=== PATIENT | female | born 1995 | race Two or more races ===

== ENCOUNTER 2023-05-24 06:45 | Inpatient (IN) | payer OTHER ==
[2023-05-24 09:08] LABS: BASO % 0.5 % (0-2.0); EOS % 0.9 % (0-4.5); HEMATOCRIT 24.6 % (32.4-45.2); HEMOGLOBIN 7.2 GM/dL (10.7-15.3); MCHC 29.3 g/dl (32.0-36.0); MEAN CELL VOLUME 59.3 fl (80-96); MEAN PLT VOLUME 8.1 fl (7.5-11.1); MONO % 5.4 % (3.8-10.2); NEUT % 75.2 % (42.8-82.8); PLATELET COUNT 291 10^3/uL (134-434); RBC 4.14 M/mm3 (3.60-5.2); RDW 20.2 % (11.6-15.6); WHITE BLOOD COUNT 13.5 K/mm3 (4.0-10.0)
[2023-05-24 09:12] LABS: INR 1.09 (0.83-1.09); PROTHROMBIN TIME (PATIENT) 12.6 SEC (9.7-13.0)
[2023-05-24 09:13] LABS: MCH 17.4 pg (25.7-33.7)
[2023-05-24 09:15] LABS: ACTIVATED PTT 28.1 SECONDS (25.2-36.5)
[2023-05-24 09:35] LABS: POTASSIUM 3.9 mmol/L (3.5-5.1)
[2023-05-24 09:36] LABS: CALCIUM 8.2 mg/dL (8.5-10.1)
[2023-05-24 09:37] LABS: BLOOD UREA NITROGEN 10.3 mg/dL (7-18)
[2023-05-24 09:40] LABS: CREATININE 0.5 mg/dL (0.55-1.3)
[2023-05-24] MEDS ORDERED: OXYTOCIN 30 UNITS in 0.9% NS 30 UNIT/500 ML INFUS.BAG IVPB SCH (09:45)
[2023-05-24 09:52] LABS: ANISOCYTOSIS 3+; MACROCYTOSIS 1+; OVALOCYTE 1+
[2023-05-24] MEDS: ELECTROLYTE-148 SOLN 1,000 ML IV SCH ×2 (10:00→22:45)
[2023-05-24] MEDS ORDERED: OXYTOCIN 30 UNITS in 0.9% NS 30 UNIT/500 ML INFUS.BAG IVPB ONE (10:28)
[2023-05-24 11:08] VITALS: BMI 42.0
[2023-05-24 12:00] LABS: HIV INTERPRETATION NEGATIVE (NEGATIVE)
[2023-05-24] MEDS ORDERED: CITRIC ACID/SODIUM CITRATE 30 ML UNIT-DOSE CUP PO ONE (22:00)
[2023-05-25] MEDS ORDERED: SIMETHICONE 80 MG TAB.CHEW (FP) PO PRN (00:50)
[2023-05-25] MEDS ORDERED: ACETAMINOPHEN 325 MG TABLET (FP) PO PRN (00:50)
[2023-05-25] MEDS ORDERED: SENNOSIDES/DOCUSATE COMBO (SENNA PLUS) TABLET (UD) PO PRN (00:50)
[2023-05-25] MEDS ORDERED: METHYLERGONOVINE MALEATE 0.2 MG/1 ML AMP IM PRN (00:50)
[2023-05-25] MEDS ORDERED: OXYTOCIN 30 UNITS in 0.9% NS 30 UNIT/500 ML INFUS.BAG IVPB ONE (01:13)
[2023-05-25] MEDS ORDERED: PHENYLEPHRINE HCL 10 MG/1 ML SINGLE DOSE VIAL ONE (01:16)
[2023-05-25] MEDS ORDERED: METOCLOPRAMIDE HCL INJECTION 10 MG/2 ML VIAL ONE (01:16)
[2023-05-25] MEDS ORDERED: ONDANSETRON 4 MG/2 ML VIAL ONE (01:16)
[2023-05-25] MEDS ORDERED: ceFAZolin SODIUM 1 GM VIAL ONE (01:16)
[2023-05-25] MEDS ORDERED: DEXAMETHASONE SOD PHOSPHATE 4 MG/1 ML VIAL ONE (01:16)
[2023-05-25] MEDS ORDERED: morphine SULFATE/PF 1 MG/2 ML (2cc Syringe - QUVA) ONE (01:19)
[2023-05-25] MEDS ORDERED: FENTANYL CITRATE/PF 50 MCG/ML VIAL ONE (01:19)
[2023-05-25] MEDS ORDERED: morphine SULFATE/PF 1 MG/2 ML (2cc Syringe - QUVA) IT ONE (01:34)
[2023-05-25] MEDS: OXYTOCIN 20 UNITS in 0.9% NS 20 UNIT/1,000 ML INFUS.BAG IV SCH ×2 (02:30→22:31)
[2023-05-25] MEDS ORDERED: ONDANSETRON 4 MG/2 ML VIAL IVPUSH PRN (02:47)
[2023-05-25] MEDS ORDERED: OXYTOCIN 20 UNITS in 0.9% NS 20 UNIT/1,000 ML INFUS.BAG IV ONE (03:46)
[2023-05-25] MEDS ORDERED: ACETAMINOPHEN INJECTION 100 ML IVPB ONE (04:27)
[2023-05-25] MEDS: ACETAMINOPHEN 1000 MG/100 ML BAG IVPB PRN ×2 (04:30→21:27)
[2023-05-25] MEDS: FERROUS SO4 325 MG TABLET (FP) PO SCH ×2 (08:00→17:25)
[2023-05-25] MEDS: PRENATAL VITAMINS W/ FOLIC ACID TABLET (FP) PO SCH (10:00)
[2023-05-25] MEDS ORDERED: oxyCODONE HCL 5 MG TABLET PO PRN ×2 (12:50)
[2023-05-25] MEDS: IBUPROFEN 800 MG/8 ML IJ IVPB PRN (15:38)
[2023-05-26] MEDS ORDERED: BISACODYL 10 MG SUPP.RECT RC PRN (00:50)
[2023-05-26] MEDS: IBUPROFEN 800 MG/8 ML IJ IVPB PRN (02:56)
[2023-05-26] MEDS: FERROUS SO4 325 MG TABLET (FP) PO SCH ×2 (08:13→18:08)
[2023-05-26] MEDS: IBUPROFEN 600 MG TABLET (FP) PO PRN ×2 (08:28→18:08)
[2023-05-26 08:59] LABS: BASO % 0.4 % (0-2.0); EOS % 0.7 % (0-4.5); HEMATOCRIT 25.7 % (32.4-45.2); HEMOGLOBIN 7.8 GM/dL (10.7-15.3); LYMPH % 18.8 % (8-40); MCHC 30.5 g/dl (32.0-36.0); MEAN CELL VOLUME 64.7 fl (80-96); MEAN PLT VOLUME 8.4 fl (7.5-11.1); MONO % 5.7 % (3.8-10.2); NEUT % 74.4 % (42.8-82.8); PLATELET COUNT 249 10^3/uL (134-434); RBC 3.97 M/mm3 (3.60-5.2); RDW 25.6 % (11.6-15.6); WHITE BLOOD COUNT 12.4 K/mm3 (4.0-10.0)
[2023-05-26 09:02] LABS: MCH 19.7 pg (25.7-33.7)
[2023-05-26] MEDS: PRENATAL VITAMINS W/ FOLIC ACID TABLET (FP) PO SCH (09:59)
[2023-05-26] MEDS: ELECTROLYTE-148 SOLN 1,000 ML IV SCH (20:08)
[2023-05-26] MEDS: OXYTOCIN 20 UNITS in 0.9% NS 20 UNIT/1,000 ML INFUS.BAG IV SCH (20:08)
[2023-05-26 22:15] VITALS: RESP 18
[2023-05-27] MEDS: IBUPROFEN 600 MG TABLET (FP) PO PRN (02:55)
[2023-05-27] MEDS: FERROUS SO4 325 MG TABLET (FP) PO SCH ×2 (08:40→17:19)
[2023-05-27 09:43] VITALS: BP 111/75; PULSE 92; TEMP 98
[2023-05-27] MEDS: PRENATAL VITAMINS W/ FOLIC ACID TABLET (FP) PO SCH (09:45)
[2023-05-27 15:41] LABS: HEMATOCRIT 28.1 % (32.4-45.2); HEMOGLOBIN 8.6 GM/dL (10.7-15.3); MCHC 30.5 g/dl (32.0-36.0); MEAN CELL VOLUME 64.4 fl (80-96); MEAN PLT VOLUME 8.3 fl (7.5-11.1); PLATELET COUNT 315 10^3/uL (134-434); RBC 4.36 M/mm3 (3.60-5.2); RDW 26.3 % (11.6-15.6); WHITE BLOOD COUNT 11.8 K/mm3 (4.0-10.0)
[2023-05-27 15:44] LABS: MCH 19.6 pg (25.7-33.7)
== END 2023-05-27 17:43 | disposition home or self-care (01) | DRG 540 ==
LOC: JLDR 06:45 → J3W 05-25 04:39
PROVIDERS: ADMIT Obstetrics & Gynecology; ATTEND Obstetrics & Gynecology
PROC: 30233N1 Transfusion of Nonautologous Red Blood Cells into Peripheral Vein, Percutaneous Approach (ICD-10-PCS; 2023-05-24)
PROC: 10D00Z1 Extraction of Products of Conception, Low, Open Approach (ICD-10-PCS; principal; 2023-05-25)
DX: O62.9 Abnormality of forces of labor, unspecified (principal); O99.02 Anemia complicating childbirth; D64.9 Anemia, unspecified; O36.8130 Decreased fetal movements, third trimester, not applicable or unspecified; O36.63X0 Maternal care for excessive fetal growth, third trimester, not applicable or unspecified; Z3A.40 40 weeks gestation of pregnancy; Z37.0 Single live birth; O99.214 Obesity complicating childbirth; E66.01 Morbid (severe) obesity due to excess calories
CPT/HCPCS: 36415; 36430; 80048; 85025; 85027; 85610; 85730; 86780; 86850; 86900; 86901; 86922; 87389; 88307-TC; 94010; P9058